=== PATIENT | male | born 1935 | race Caucasian/White ===

== ENCOUNTER 2017-02-08 13:45 | Emergency (ER) | payer MEDICARE, OTHER ==
[~2017-02-08] VITALS: Ht 167.6 cm; Wt 66.5 kg
[~2017-02-08 13:45] MED LIST: TERA5CAP PO
[2017-02-08 13:48] VITALS: TEMP 36.6; Ht 167.6 cm; Wt 66.5 kg
--- NOTE | 2017-02-08 14:50 | DIAGNOSTIC IMAGING REPORT ---
LEFT ANKLE 3 VIEWS HISTORY: Left ankle pain. COMPARISON: None. FINDINGS: There is no fracture or dislocation. The bones are osteopenic. Mild vascular calcifications. Lateral soft tissue swelling. No radiopaque foreign bodies. IMPRESSION: No fractures. Electronically signed by: Naseem Sung M.D. 02/08/2017 2:49 PM Dictated Date/Time: 02/08/2017 2:48 PM
--- NOTE | 2017-02-08 15:03 | EMERGENCY ROOM VISIT NOTE ---
History First contact with patient: 14:12 Chief Complaint: ANKLE PAIN Stated Complaint: SWOLLEN LEFT ANKLE History of Present Illness The patient is a 82 year old male who presents to the Emergency Room via private vehicle accompanied by family with complaints of "swollen left ankle". The patient states that about 1.5-2 hours prior to arrival the patient was taking the garbage out, and turned around and struck the left lateral ankle off of the step. He states that there was no pain, but now there is some swelling, therefore prompting him to come to the emergency department. He denies any blood thinners, he notes that he is from [place]. Review of Systems A complete 6-point Review of Systems was discussed with the patient, with pertinent positives and negatives listed in the History of Present Illness. All remaining Review of Systems questions can be considered negative unless otherwise specified. 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 Social History Smoking Status: Never Smoker Alcohol Use: none Drug Use: none Housing Status: lives alone Occupation Status: retired Current/Historical Medications No Active Prescriptions or Reported Meds Physical Exam Vital Signs Date Time Temp Pulse Resp B/P (MAP) Pulse Ox O2 Delivery O2 Flow Rate FiO2 02/08/17 13:48 36.6 68 22 201/90 95 Room Air Physical Exam VITAL SIGNS - Vital signs and nursing notes were reviewed. Hypertensive. Stable. GENERAL -82-year-old male appearing his stated age who is in no acute distress. Communicates well with provider and answers questions appropriately. SKIN - Without rashes. No petechial rashes. The skin overlying the left lateral ankle is intact, but edematous. EXTREMITIES - No clubbing or peripheral cyanosis. No pretibial edema present. He is neurovascularly intact in the left lower extremity. No tenderness to palpation overlying the entire left lower extremity. Diffuse edema overlying the left lateral ankle. +5/5 strength noted in UE/LE bilaterally. Medical Decision & Procedures ER Provider Diagnostic Interpretation: LEFT ANKLE 3 VIEWS HISTORY: Left ankle pain. COMPARISON: None. FINDINGS: There is no fracture or dislocation. The bones are osteopenic. Mild vascular calcifications. Lateral soft tissue swelling. No radiopaque foreign bodies. IMPRESSION: No fractures. Electronically signed by: Naseem Sung M.D. 02/08/2017 2:49 PM Dictated Date/Time: 02/08/2017 2:48 PM Medical Decision Patient was seen and evaluated as above. He presents twice today with left lateral ankle swelling status post injury. There was no swelling prior to the injury, therefore believe it is musculoskeletal in nature. I do not suspect DVT or blood clot. No evidence of infection. Radiograph was obtained with results as above. No acute fracture. I suspect soft tissue contusion. He was given an Jaylen wrap, and declined crutches and splint. He is to follow-up with his family doctor regarding elevated blood pressure, as well as at the swelling would persist. He was educated upon management, educated upon worrisome symptoms in which to return, had questions answered prior to discharge, and was discharged home in good condition. Medication list was reviewed, he does not take any medications. Blood pressure was elevated which I believe secondary to the situation. In the evaluation and treatment of this patient, the following differential diagnoses were considered: Ankle Fracture, Ankle Sprain, Distal Fibula Fracture , Distal Tibia Fracture, Foot Fracture, [place]uve Fracture. Impression Primary Impression: Left ankle injury Departure Information Dispostion Home / Self-Care Condition GOOD Prescriptions No Active Prescriptions or Reported Meds Referrals No Doctor, Assigned (PCP) Patient Instructions [facility] Additional Instructions You have been treated in the Emergency Department for a left Ankle injury. If this is a recent injury (<24 hrs), ice can be applied to the area of pain for the first 3 days to help decrease pain and inflammation. Please follow up with family doctor if swelling persists or if pain develops. Return to the Emergency Department if your current symptoms worsen despite treatment course outlined above, or if you develop any of the following symptoms : intractable pain despite aforementioned treatment course or new onset of numbness or tingling of the foot. LEFT ANKLE 3 VIEWS FINDINGS: There is no fracture or dislocation. The bones are osteopenic. Mild vascular calcifications. Lateral soft tissue swelling. No radiopaque foreign bodies. IMPRESSION: No fractures.
[2017-02-08 15:19] VITALS: BP 128/75; PULSE 89; O2SAT 95
== END 2017-02-08 15:22 | disposition home or self-care (01) ==
LOC: C.EDB 13:49 → C.EDD 15:22
DX: S99.912A Unspecified injury of left ankle, initial encounter (principal); W22.8XXA Striking against or struck by other objects, initial encounter; N40.0 Benign prostatic hyperplasia without lower urinary tract symptoms; E78.00 Pure hypercholesterolemia, unspecified